=== PATIENT | female | born 1990 | race Caucasian/White ===

== ENCOUNTER 2017-06-21 23:26 | Inpatient (IN) | payer BC ==
[2017-06-22] MEDS ORDERED: Promethazine INJ(RESTRICTED)* 25 MG/ML 1 ML VIAL IM ONE (01:00)
[2017-06-22] MEDS ORDERED: Nalbuphine* 20 MG/ML 1 ML VIAL IM ONE (01:00)
[2017-06-22 06:56] LABS: Hematocrit 37 % (35-47); Hemoglobin 12.5 g/dl (12.0-16.0); Mean Corpuscular HGB Conc 34 g/dl (31-36); Mean Corpuscular Hemoglobin 30 pg (27-31); Mean Corpuscular Volume 88 fL (80-97); Mean Platelet Volume 9 um3 (7.4-10.4); Red Blood Count 4.19 10^6/ul (4.0-5.4); Red Cell Distribution Width 15 % (10.5-15); White Blood Count 15.7 10^3/ul (3.5-10.8)
[2017-06-22] MEDS ORDERED: OBEPIDURAL* 250 ML ONE (07:02)
[2017-06-22] MEDS ORDERED: Phenylephrine IV* 40 MCG/ML 10 ML SYRINGE IV PUSH PRN ×2 (08:21)
[2017-06-22] MEDS ORDERED: EPHEDrine (Pressors)* 50 MG/ML VIAL IV PUSH PRN ×2 (08:21)
[2017-06-22] MEDS ORDERED: Sodium Citrate/Citric Acid* 15 ML UDC PO PRN (08:21)
[2017-06-22] MEDS ORDERED: Famotidine TAB* 20 MG PO PRN (08:21)
[2017-06-22] MEDS ORDERED: Oxytocin in LR* 20 UNITS/1,000 ML BAG IVPB SCH ×2 (09:00→16:00)
[2017-06-22] MEDS ORDERED: OBEPIDURAL* 250 ML EPIDURAL SCH (09:00)
[2017-06-22] MEDS ORDERED: fentaNYL* 50 MCG/ML 2 ML VIAL (100 MCG VIAL) ONE (10:28)
[2017-06-22] MEDS ORDERED: Acetaminophen TAB* 325 MG PO PRN (15:36)
[2017-06-22] MEDS ORDERED: Glycerin ADULT SUPP PR PRN (15:36)
[2017-06-22] MEDS ORDERED: Dibucaine 1% 28.35 GM TUBE PR PRN (15:36)
[2017-06-22] MEDS ORDERED: Witch Hazel PAD* JAR TOPICAL PRN (15:36)
[2017-06-22] MEDS ORDERED: Simethicone CHEW TAB* 80 MG PO SCH (17:30)
[2017-06-22] MEDS: Docusate CAP* 100 MG PO SCH (21:11)
[2017-06-23] MEDS: Ibuprofen TAB* 600 MG PO PRN ×2 (08:20→20:06)
[2017-06-23] MEDS ORDERED: Ferrous Gluconate TAB* 324 MG TAB PO SCH (09:00)
[2017-06-23] MEDS: Docusate CAP* 100 MG PO SCH ×3 (09:06→20:06)
[2017-06-23 09:54] LABS: Hematocrit 37 % (35-47); Hemoglobin 12.4 g/dl (12.0-16.0); Mean Corpuscular HGB Conc 34 g/dl (31-36); Mean Corpuscular Hemoglobin 30 pg (27-31); Mean Corpuscular Volume 89 fL (80-97); Mean Platelet Volume 9 um3 (7.4-10.4); Red Blood Count 4.14 10^6/ul (4.0-5.4); Red Cell Distribution Width 15 % (10.5-15)
[2017-06-23] MEDS ORDERED: Influenza VAC *QUAD* 2017-18* 0.5 ML SYRINGE IM ONE (10:00)
--- NOTE | 2017-06-23 19:15 | PTEDU ---
Patient Name: MARLENI MAYES MARLENI MAYES selected video: Never Ever Shake a Baby to view on 06/23/2017 at 7:13:52 PM [place] [facility] [id number]
[2017-06-24] MEDS: Ibuprofen TAB* 600 MG PO PRN (07:42)
[2017-06-24] MEDS: Docusate CAP* 100 MG PO SCH (07:42)
[2017-06-24 07:49] VITALS: BP 120/71
== END 2017-06-24 10:12 | disposition home or self-care (01) | DRG 560 ==
LOC: MCHOBOUT 23:26 → MCHOB 06-22 05:58
PROVIDERS: ADMIT Obstetrics & Gynecology; ATTEND Obstetrics & Gynecology
PROC: 10E0XZZ Delivery of Products of Conception, External Approach (ICD-10-PCS; principal; 2017-06-22)
PROC: 10907ZC Drainage of Amniotic Fluid, Therapeutic from Products of Conception, Via Natural or Artificial Opening (ICD-10-PCS; 2017-06-22)
PROC: 0HQ9XZZ Repair Perineum Skin, External Approach (ICD-10-PCS; 2017-06-22)
PROC: 4A1H7FZ Monitoring of Products of Conception, Cardiac Rhythm, Via Natural or Artificial Opening (ICD-10-PCS; 2017-06-22)
DX: O48.0 Post-term pregnancy (principal); O69.81X0 Labor and delivery complicated by cord around neck, without compression, not applicable or unspecified; Z3A.40 40 weeks gestation of pregnancy; O70.0 First degree perineal laceration during delivery; Z37.0 Single live birth
CPT/HCPCS: 36415; 85025; 86850; 86900; 86901; 90686; A9270-GY; J2300; J2550; J3010

== ENCOUNTER 2018-08-08 17:29 | Emergency (ER) | payer BC, OTHER ==
[2018-08-08 18:15] VITALS: BP 127/94
--- NOTE | 2018-08-08 18:35 | UC ---
Skin Complaint HPI - HPI Summary HPI Summary: 28-year-old female comes to clinic with a chief complaint of left forearm wound inflammation and drainage. Patient had a precancerous lesion removed from there on July 13, 2018. She had the sutures removed on July 27, 2018. The superficial sutures were blew. She also believes there were subcutaneous absorbable sutures. She's noticed yellow discharge that occasionally has some blood. No fevers no chills feels well otherwise. - History of Current Complaint Chief Complaint: UCSkin Time Seen by Provider: 08/08/18 18:22 Stated Complaint: SKIN CONDITION - L FOREARM Hx Last Menstrual Period: 08/04/18 Pain Intensity: 3 - Allergy/Home Medications Allergies/Adverse Reactions: Allergies Allergy/AdvReac Type Severity Reaction Status Date / Time No Known Allergies Allergy Verified 08/08/18 18:15 Home Medications: Home Medications Bcp 1 tab DAILY 08/08/18 [History Confirmed 08/08/18] Review of Systems Constitutional: Negative Skin: Other - SEE HPI Eyes: Negative ENT: Negative Respiratory: Negative Cardiovascular: Negative Gastrointestinal: Negative Motor: Negative Neurovascular: Negative Musculoskeletal: Negative Neurological: Negative Psychological: Negative Is Patient Immunocompromised?: No All Other Systems Reviewed And Are Negative: Yes PMH/Surg Hx/FS Hx/Imm Hx Other Cancer History: LEFT FOREARM PRECANCEROUS LESION - Surgical History Surgical History: Yes - LEFT FOREARM PRECANCEROUS LESION REMOVED 07/13/18 - Family History Known Family History: Positive: Hypertension - Social History Alcohol Use: Rare Substance Use Type: None Smoking Status (MU): Never Smoked Tobacco - Immunization History Most Recent Influenza Vaccination: 06/2017 Most Recent Tetanus Shot: UTD Most Recent Pneumonia Vaccination: never Physical Exam Triage Information Reviewed: Yes Appearance: Well-Appearing, No Pain Distress, Well-Nourished Vital Signs: Initial Vital Signs Temp 98.2 F 08/08/18 18:09 Pulse 92 08/08/18 18:09 Resp 16 08/08/18 18:09 BP 127/94 08/08/18 18:09 Pulse Ox 99 08/08/18 18:09 Vital Signs Reviewed: Yes Eye Exam: Normal Eyes: Positive: Conjunctiva Clear Neck exam: Normal Neck: Positive: Supple Respiratory: Positive: No respiratory distress Musculoskeletal Exam: Normal Musculoskeletal: Positive: Strength Intact, ROM Intact Neurological Exam: Normal Neurological: Positive: Alert, Muscle Tone Normal Psychological Exam: Normal Psychological: Positive: Age Appropriate Behavior Skin: Positive: Other - Left forearm has a healing incision that is 3 AND a half centimeters long. It's returned with erythema. There is no drainage there is no blue sutures. There is some white material extruding out of one and of the wound which may be absorbable sutures. Course/Dx - Course Course Of Treatment: The wound irritation may be infection therefore start Keflex. No history of MRSA. It may also be due to the absorbable sutures and the body's reaction. Patient will follow up with her control center operator get a reevaluation sooner if any questions or concerns or if worse. - Diagnoses Provider Diagnoses: POST SURGICAL WOUND IRRITATION LEFT FOREARM Discharge - Sign-Out/Discharge Documenting (check all that apply): Patient Departure All imaging exams completed and their final reports reviewed: No Studies - Discharge Plan Condition: Stable Disposition: HOME Prescriptions: Cephalexin CAP* [Keflex CAP*] 500 mg PO TID #30 cap Patient Education Materials: Surgical Site Infections (ED), Care For Your Absorbable Stitches (ED) Referrals: Luis Cardenas DO [Primary Care Provider] - Additional Instructions: FOLLOW UP WITH YOUR QUANTITATIVE ANALYST. GET RECHECKED FOR ANY WORSENING OF YOUR CONDITION OR QUESTIONS OR CONCERNS. - Billing Disposition and Condition Condition: STABLE Disposition: Home
== END 2018-08-08 18:45 | disposition home or self-care (01) ==
LOC: UCCORT 17:29
DX: T81.30XA Disruption of wound, unspecified, initial encounter (principal)
CPT/HCPCS: 99212; G0463

== ENCOUNTER 2018-11-20 17:43 | Emergency (ER) | payer BC, OTHER ==
[2018-11-20 20:27] VITALS: BP 137/81
[2018-11-20] MEDS ORDERED: Amoxicillin/Clavulanate TAB* 875 MG PO ONE (20:31)
--- NOTE | 2018-11-20 20:32 | UC ---
UC General HPI - HPI Summary HPI Summary: pt c/o 10 day hx worsening sinus pain, pressure and congestion. + green drainage. no relief otc cold medications. - History of Current Complaint Chief Complaint: UCGeneralIllness Stated Complaint: SINUS COMPLAINT Time Seen by Provider: 11/20/18 20:26 Hx Obtained From: Patient Hx Last Menstrual Period: 11/06/18 Onset/Duration: Gradual Onset Timing: Constant Pain Intensity: 8 Associated Signs & Symptoms: Negative: Fever, Headache - Allergy/Home Medications Allergies/Adverse Reactions: Allergies Allergy/AdvReac Type Severity Reaction Status Date / Time No Known Allergies Allergy Verified 11/20/18 20:27 PMH/Surg Hx/FS Hx/Imm Hx Previously Healthy: Yes - Surgical History Surgical History: None - Family History Known Family History: Positive: Hypertension - Social History Alcohol Use: Rare Substance Use Type: None Smoking Status (MU): Never Smoked Tobacco - Immunization History Most Recent Influenza Vaccination: 06/2017 Most Recent Tetanus Shot: UTD Most Recent Pneumonia Vaccination: never Vaccination Up to Date: Yes Review of Systems All Other Systems Reviewed And Are Negative: Yes Constitutional: Positive: Negative Skin: Positive: Negative Eyes: Positive: Negative ENT: Positive: Nasal Discharge, Sinus Congestion, Sinus Pain/Tenderness Respiratory: Positive: Negative Cardiovascular: Positive: Negative Gastrointestinal: Positive: Negative Genitourinary: Positive: Negative Motor: Positive: Negative Neurovascular: Positive: Negative Musculoskeletal: Positive: Negative Neurological: Positive: Negative Psychological: Positive: Negative Physical Exam Triage Information Reviewed: Yes Appearance: Well-Appearing Vital Signs: Initial Vital Signs Temp 97.9 F 11/20/18 20:23 Pulse 99 11/20/18 20:23 Resp 17 11/20/18 20:23 BP 137/81 11/20/18 20:23 Pulse Ox 99 11/20/18 20:23 Vital Signs Reviewed: Yes Eyes: Positive: Conjunctiva Clear ENT: Positive: Pharynx normal, Nasal congestion, TMs normal, Sinus tenderness Neck: Positive: Supple, Nontender, No Lymphadenopathy Respiratory: Positive: Lungs clear, Normal breath sounds Cardiovascular: Positive: RRR, No Murmur Abdomen Description: Positive: Nontender, No Organomegaly, Soft Bowel Sounds: Positive: Present Musculoskeletal: Positive: ROM Intact Neurological: Positive: Alert Psychological: Positive: Age Appropriate Behavior Skin Exam: Normal Course/Dx - Diagnoses Provider Diagnosis: Sinusitis Discharge - Sign-Out/Discharge Documenting (check all that apply): Patient Departure All imaging exams completed and their final reports reviewed: No Studies - Discharge Plan Condition: Stable Disposition: HOME Prescriptions: Amoxicillin/Clavulanate TAB* [Augmentin TAB 875*] 875 mg PO BID 10 Days #20 tab Patient Education Materials: Sinusitis (ED) Referrals: Luis Cardenas DO [Primary Care Provider] - 7 Days - Billing Disposition and Condition Condition: STABLE Disposition: Home - Attestation Statements Provider Attestation: I was available for consult. This patient was seen by the VALERIE. The patient was not presented to, seen by, or examined by me. -Carson
== END 2018-11-20 20:43 | disposition home or self-care (01) ==
LOC: UCCORT 17:43
DX: J32.9 Chronic sinusitis, unspecified (principal)
CPT/HCPCS: 99212; A9270-GY; G0463

== ENCOUNTER 2020-11-09 03:16 | Inpatient (IN) ==
[2020-11-09] MEDS ORDERED: Buffered Lidocaine 1% SYRIN 1 ml INTRADERM ONE (04:32)
[2020-11-09] MEDS ORDERED: Lactated Ringers 1000 ml BAG 1,000 ML IV ONE ×2 (04:32→11:52)
[2020-11-09] MEDS ORDERED: Morphine 10 MG/ML VIAL (1 ml) IM ONE (04:35)
[2020-11-09] MEDS ORDERED: Promethazine INJ(RESTRICTED) 25 MG/ML 1 ml VIAL IM PRN (04:35)
[2020-11-09] MEDS ORDERED: Lactated Ringers 1000 ml BAG 1,000 ML IV SCH ×3 (05:00→18:00)
[2020-11-09 05:12] LABS: Urine Benzodiazepine Screen None Detected (None Detect); Urine Cannabinoids Screen None Detected (None Detect); Urine Opiates Screen None Detected (None Detect)
[2020-11-09] MEDS ORDERED: Oxytocin in LR 20 UNITS/1,000 ML BAG IVPB SCH ×2 (10:00→18:00)
[2020-11-09 11:00] LABS: ABS Lymphocytes 2.6 10^3/ul (1.0-4.8); ABS Monocytes 0.7 10^3/ul (0-0.8); ABS Neutrophils 9.8 10^3/ul (1.5-7.7); Eosinophil % 0.2 %; Hematocrit 40 % (35-47); Hemoglobin 13.2 g/dL (12.0-16.0); Mean Corpuscular HGB Conc 34 g/dL (31-36); Mean Corpuscular Hemoglobin 31 pg (27-31); Mean Corpuscular Volume 91 fL (80-97); Mean Platelet Volume 8.7 fL (7.4-10.4); Platelet Count 245 10^3/uL (150-450); Red Blood Count 4.32 10^6 /uL (3.70-4.87); Red Cell Distribution Width 14 % (10-15); White Blood Count 13.2 10^3/uL (3.5-10.8)
[2020-11-09] MEDS ORDERED: OBEPIDURAL 250 ML EPIDURAL ONE (11:13)
[2020-11-09] MEDS ORDERED: Lactated Ringers 1000 ml BAG 500 ML IV PRN ×2 (11:52)
[2020-11-09] MEDS ORDERED: Sodium Citrate/Citric Acid LIQ 15 ML UDC PO PRN (11:52)
[2020-11-09] MEDS ORDERED: Phenylephrine 40 mcg/mL 10mL (400mcg) SYRINGE IV PUSH PRN ×2 (11:52)
[2020-11-09] MEDS ORDERED: EPHEDrine (Pressors) 50 MG/ML VIAL IV PUSH PRN ×2 (11:52)
[2020-11-09] MEDS ORDERED: OBEPIDURAL 250 ML EPIDURAL SCH (12:00)
[2020-11-09] MEDS ORDERED: Dibucaine 1% OINT 28.35 GM TUBE PR PRN (17:09)
[2020-11-09] MEDS ORDERED: Witch Hazel PAD JAR ONE (17:09)
[2020-11-09] MEDS ORDERED: Witch Hazel PAD JAR TOPICAL PRN (17:09)
[2020-11-09] MEDS ORDERED: Dibucaine 1% OINT 28.35 GM TUBE ONE (17:09)
[2020-11-09] MEDS ORDERED: Lidocaine 1% MPF 5 ML VIAL ONE (18:14)
[2020-11-09] MEDS ORDERED: Phenylephrine 40 mcg/mL 10mL (400mcg) SYRINGE ONE (18:14)
[2020-11-10 07:51] LABS: ABS Eosinophils 0.1 10^3/ul (0-0.6); ABS Lymphocytes 3.2 10^3/ul (1.0-4.8); ABS Monocytes 0.8 10^3/ul (0-0.8); ABS Neutrophils 10.5 10^3/ul (1.5-7.7); Eosinophil % 0.4 %; Hematocrit 36 % (35-47); Hemoglobin 12.3 g/dL (12.0-16.0); Mean Corpuscular HGB Conc 35 g/dL (31-36); Mean Corpuscular Hemoglobin 31 pg (27-31); Mean Corpuscular Volume 90 fL (80-97); Mean Platelet Volume 8.4 fL (7.4-10.4); Platelet Count 210 10^3/uL (150-450); Red Blood Count 3.94 10^6 /uL (3.70-4.87); Red Cell Distribution Width 14 % (10-15); White Blood Count 14.6 10^3/uL (3.5-10.8)
[2020-11-10 13:18] VITALS: BP 127/77
== END 2020-11-10 13:40 | disposition home or self-care (01) ==
LOC: MCHOBOUT 03:16 → MCHOB 04:34
PROVIDERS: ADMIT Midwife; ATTEND Midwife